=== PATIENT | female | born 1960 | race Caucasian/White ===

== ENCOUNTER 2020-03-03 21:59 | Emergency (ER) | payer SELFPAY ==
[~2020-03-03] VITALS: Ht 162.6 cm; Wt 64.0 kg
[2020-03-04 01:54] LABS: BASOPHILS % 0.8 % (0.0-2.0); EOSINOPHILS % 1.2 % (0.0-5.0); HEMATOCRIT. 43.6 % (36.0-48.0); HEMOGLOBIN. 14.7 g/dL (12.0-16.0); MEAN CORPUSCULAR HEMOGLOBIN 33.2 pg (28.0-32.0); MEAN CORPUSCULAR VOLUME 98.7 fL (81.0-99.0); MEAN PLATELET VOLUME 8.1 fl (7.4-10.4); MONOCYTES % 6.8 % (2.0-8.0); NEUTROPHILS % 48.2 % (40.0-76.0); PLATELET 287 x1000/uL (130-400); RED BLOOD CELL COUNT 4.42 mill/uL (4.2-5.4); RED CELL DISTRIBUTION WIDTH 13.1 % (11.6-14.6)
[2020-03-04 02:01] LABS: CHLORIDE 108 mEq/L (98-107)
[2020-03-04 02:18] LABS: ETHANOL BLOOD 329 mg/dL
[2020-03-04 05:00] VITALS: BP 125/76
== END 2020-03-04 05:05 | disposition home or self-care (01) ==
LOC: ER 21:59
DX: F19.10 Other psychoactive substance abuse, uncomplicated (principal); R41.82 Altered mental status, unspecified; I49.9 Cardiac arrhythmia, unspecified
CPT/HCPCS: 36415; 80053; 80307; 80320; 80329; 83880; 84484; 85025; 93005; 99284; G0480